=== PATIENT | male | born 1965 | race Caucasian/White ===

== ENCOUNTER 2019-07-06 08:20 | Observation (INO) | payer OTHER ==
--- NOTE | 2019-07-04 13:00 | NUR ---
Checked patient temperature: 98.6F via skin probe. Patient denies being out of the country in the last 14 days. Patient denies being around anyone who has been out the country in the last 14 days. Patient denies being around anyone who was exposed or diagnosed with garcia virus. Patient denies fever, cough, or shortness of breath in the last 14 days.
[2019-07-04 13:40] LABS: BASOPHILS % 0.2 % (0.0-1.0); EOSINOPHILS # (AUTO) 0.1 (0.0-0.4); EOSINOPHILS % 1.6 % (0.0-6.0); HEMATOCRIT 50.1 % (38.2-49.6); HEMOGLOBIN 17.3 g/dL (14.0-18.0); LYMPHOCYTES # (AUTO) 1.4 (1.0-3.2); LYMPHOCYTES % 17.7 % (18.0-39.1); MEAN CORPUSCULAR HEMOGLOBIN 28.9 pg (28-32); MEAN CORPUSCULAR HGB CONC 34.5 g/dL (31-35); MEAN CORPUSCULAR VOLUME 83.6 fL (81-99); MONOCYTES # (AUTO) 0.7 (0.2-0.8); MONOCYTES % 8.5 % (4.4-11.3); NEUTROPHILS # (AUTO) 5.8 (2.1-6.9); NEUTROPHILS % 71.8 % (38.7-80.0); PLATELET COUNT 263 x10e3/uL (140-360); RED BLOOD COUNT 5.99 x10e6/uL (4.3-5.7); RED CELL DISTRIBUTION WIDTH 12.5 % (11.7-14.4)
[2019-07-04 13:54] LABS: INR 0.96; PROTHROMBIN TIME 13.3 seconds (11.9-14.5)
[2019-07-04 14:04] LABS: ALBUMIN 3.8 g/dL (3.5-5.0); ALBUMIN/GLOBULIN RATIO 1.2 (0.8-2.0); ANION GAP 12.1 mmol/L (8-16); CALCIUM 9.9 mg/dL (8.4-10.2); CREATININE, SERUM 1.79 mg/dL (0.72-1.25); POTASSIUM 4.1 mmol/L (3.5-5.1)
--- NOTE | 2019-07-04 14:41 | NUR ---
Dr Bonilla contacted ([phone]) and reported abnormal values of CMP. Message relayed to patient to see PCP
[~2019-07-06] VITALS: Ht 180.3 cm; Wt 83.0 kg
[2019-07-06] VITALS (13 sets, daily range): BP systolic 117–148; BP diastolic 80–94
[~2019-07-06 08:20] MED LIST: AMLODIPINE BESY10 MG PO; ASPIRIN325 MG PO; ATORVASTATIN CA20 MG PO; DIOVAN160 MG PO; HYDROCHLOROTHIA25 MG PO; SYNJARDY 12.5-1 EACH PO
[2019-07-06] MEDS ORDERED: FENTANYL CITRATE/PF 100MCG/2 ML INJ ONE (10:46)
[2019-07-06] MEDS ORDERED: MIDAZOLAM HCL 2 MG/2 ML VIAL ONE (10:46)
[2019-07-06] MEDS ORDERED: LIDOCAINE HCL 2% LOCAL 20 ML VIAL ONE (10:46)
[2019-07-06] MEDS ORDERED: VERAPAMIL HCL 2.5 MG/ML 2 ML VIAL ONE (10:46)
[2019-07-06] MEDS ORDERED: SODIUM CHLORIDE 0.9% 1000ML 1,000 ML ONE (10:47)
[2019-07-06] MEDS ORDERED: IOPAMIDOL 370 MG/ML 200 ML INFUS..BTL INJ ONE ×2 (10:47→11:55)
[2019-07-06] MEDS ORDERED: HEPARIN SOD/SOD CHLORIDE 2,000 ML ONE (10:47)
[2019-07-06] MEDS ORDERED: ADENOSINE 6MG/2ML 0 ML ONE (12:01)
[2019-07-06] MEDS ORDERED: ASPIRIN 325 MG TAB ONE (12:17)
[2019-07-06] MEDS ORDERED: TICAGRELOR 90 MG TABLET ONE (12:17)
--- NOTE | 2019-07-06 15:36 | NUR ---
Received patient from labor supervisor. AAOx3, CDI dressing to right wrist with wrist protector. Oriented to room and resting in bed. Bed locked and in low position, possessions and call light within reach.
--- NOTE | 2019-07-06 18:30 | NUR ---
Patient states, "I do not have home Synjardy, and do not want pharmacy to replace medication". Paged Dr. Bonilla to notify of [id number]. Awaiting call back.
--- NOTE | 2019-07-06 19:11 | NUR ---
Report given to oncoming nurse, aware and awaiting call back from . Resting in bed AAOx4. Denies chest pain. Call light within reach, bed locked and in low position, SR up x 2.
--- NOTE | 2019-07-06 19:11 | Operative Report ---
DATE OF PROCEDURE: SURGEON: Gus Bonilla DO PROCEDURES PERFORMED: 1. Conscious sedation, 45 minutes. 2. Selective coronary angiography x2. 3. Left heart catheterization. 4. Percutaneous coronary intervention of the mid left anterior descending coronary artery. 5. Percutaneous coronary intervention of the second obtuse marginal vessel. PREPROCEDURE DIAGNOSIS: Abnormal stress test. POSTPROCEDURE DIAGNOSIS: Abnormal stress test. ESTIMATED BLOOD LOSS: Less than 20 mL. SPECIMENS REMOVED: None. PROCEDURE IN DETAIL: After informed consent was obtained, the patient was brought to the cardiac catheterization laboratory in a fasting and nonsedated state. Conscious sedation was provided by myself and monitored by the paving and surfacing labourer nurse. Lidocaine 2% was infiltrated over the right wrist for local anesthesia. Using micropuncture needle, the right radial artery was accessed via the modified Seldinger technique and a 6-Montserratian Slender sheath was placed. Next, diagnostic coronary angiography and left heart catheterization were performed using a TIG4 catheter. This showed significant stenotic lesions in the mid LAD and second obtuse marginal vessel. Decision was made to perform percutaneous coronary intervention. The patient received systemic heparin. Next, the left main was cannulated with a 6-Montserratian XB LAD 3.0 guide catheter. The lesion was crossed with a Runthrough wire and pre-dilated with a 2.5 x 12 balloon. The mid LAD lesion was stented with a 2.5 x 20 Synergy drug-eluting stent. Next, the wire was redirected into the second obtuse marginal vessel. This was also pre-dilated with a 2.5 x 12 balloon. This was also stented with a 2.5 x 20 Synergy drug-eluting stent. Final angiography confirmed excellent interventional results without vessel perforation, edge dissection, or distal embolization at the end of the case. The patient tolerated the procedure well with no immediate complications. He was transferred back to his room in stable condition. Hemostasis was achieved via TR band. PROCEDURAL FINDINGS: 1. Left main coronary artery is patent without significant disease. 2. Left anterior descending coronary artery tapers down to a small to medium caliber vessel after the takeoff the first diagonal branch. There is a 90% stenosis in the mid portion. The distal LAD has a 50% stenosis. 3. Left circumflex coronary provides two obtuse marginal vessels. The second of which has a 70% stenosis. 4. Right coronary artery is a large dominant vessel, provides a large posterolateral branch and the posterior descending coronary artery. The PDA itself has a 60% to 70% nonflow-limiting stenosis. 5. The left ventricular end-diastolic pressure is 19 mmHg with no aortic valve gradient present upon pullback. INTERVENTIONAL RESULTS: 1. Successful percutaneous coronary intervention of the left anterior descending coronary artery. Pre-PCI LINDA flow was 2. Post PCI LINDA flow was 3. Postprocedure stenosis less than 10%. 2. Successful percutaneous coronary intervention of the left circumflex coronary artery. Pre-PCI LINDA flow was 2. Post PCI LINDA flow was 3. Postprocedure stenosis less than 10%. IMPRESSION: Abnormal stress test with multivessel coronary artery disease, status post intervention of the left anterior descending and left circumflex coronary artery. RECOMMENDATIONS: The patient will be placed on multiple medical therapy and dual antiplatelet therapy. DO ZOHAIB Carcamo/ROJASL /[id number]
[2019-07-06] MEDS ORDERED: ATORVASTATIN 40 MG TAB PO SCH (21:00)
[2019-07-07] VITALS: BP 132/76
[2019-07-07 04:00] VITALS: BP 123/79
[2019-07-07 06:41] LABS: HEMATOCRIT 46.4 % (38.2-49.6); HEMOGLOBIN 15.5 g/dL (14.0-18.0)
[2019-07-07 07:09] LABS: ANION GAP 12.2 mmol/L (8-16); CALCIUM 8.9 mg/dL (8.4-10.2); CREATININE, SERUM 1.6 mg/dL (0.72-1.25); POTASSIUM 3.2 mmol/L (3.5-5.1)
[2019-07-07 08:10] VITALS: BP 126/83
[2019-07-07] MEDS ORDERED: AMLODIPINE BESYLATE 10 MG TAB PO SCH (09:00)
[2019-07-07] MEDS ORDERED: [UNRECOGNIZED DRUG - OTHER] PO SCH (09:00)
[2019-07-07] MEDS ORDERED: METFORMIN HCL PO SCH (09:00)
[2019-07-07] MEDS ORDERED: EMPAGLIFLOZIN PO SCH (09:00)
[2019-07-07] MEDS ORDERED: HYDROCHLOROTHIAZIDE 25 MG TAB PO SCH (09:00)
[2019-07-07] MEDS ORDERED: ASPIRIN 325 MG TAB PO SCH (09:00)
[2019-07-07] MEDS ORDERED: VALSARTAN 160 MG TAB PO SCH (09:00)
[2019-07-07 09:19] VITALS: BP 126/83
--- NOTE | 2019-07-07 10:25 | NUR ---
Introductory visit. Pt lying on sofa and anxious for discharge. Pt states, "I'll self-discharge if if I have to." C.O.D. Audit Clerk provided calming pastoral presence, hospitality, and supportive listening. KEVIN HUMPHRIES C.O.D. Audit Clerk Spiritual Care Department O: [phone]
--- NOTE | 2019-07-07 11:04 | NUR ---
DISCHARGE INSTRUCTIONS REVIEWED WITH PT, VERBALIZED UNDERSTANDING, AWAITING RIDE
== END 2019-07-07 11:10 | disposition home or self-care (01) ==
LOC: CATH LAB 08:20 → MED/SURG 13:13 → CATH LAB 15:36
PROVIDERS: ADMIT Internal Medicine Cardiovascular Disease; ATTEND Internal Medicine Cardiovascular Disease
DX: I25.110 Atherosclerotic heart disease of native coronary artery with unstable angina pectoris (principal); I73.9 Peripheral vascular disease, unspecified; I10 Essential (primary) hypertension; E78.5 Hyperlipidemia, unspecified; R94.39 Abnormal result of other cardiovascular function study; Z01.812 Encounter for preprocedural laboratory examination
CPT/HCPCS: 36415 ×3; 80048; 80053; 82948 ×2; 85014; 85018; 85025; 85610; 92928; 92929; 93458; C1725; C1769; C1874; C1887; G0378 ×2; J2001; J2250; J3010; J7030; Q9967; 99152; 99153; J0153

== ENCOUNTER → 2020-07-16 | Outpatient (CLI) | payer BC ==
[~2020-07-16] MED LIST changes: +GADOBENATE DIMEGLUMINE 1 ML IV ONE
[2020-07-16 13:54] LABS: CREATININE, SERUM 1.69 mg/dL (0.72-1.25)
== END ==
LOC: MRI 13:08
PROVIDERS: ATTEND Psychiatry & Neurology Neurology
DX: R20.8 Other disturbances of skin sensation (principal); G95.9 Disease of spinal cord, unspecified
CPT/HCPCS: 36415; 72156; 72157; 82565; 84520; A9577

== ENCOUNTER → 2020-11-14 | Day surgery (SDC) | payer BC ==
[2020-11-13 11:43] LABS: BASOPHILS % 0.4 % (0.0-1.0); EOSINOPHILS # (AUTO) 0.2 (0.0-0.4); EOSINOPHILS % 2.5 % (0.0-6.0); HEMATOCRIT 46.2 % (38.2-49.6); LYMPHOCYTES % 14.2 % (18.0-39.1); MEAN CORPUSCULAR HGB CONC 32.5 g/dL (31-35); MEAN CORPUSCULAR VOLUME 83.2 fL (81-99); MONOCYTES # (AUTO) 0.9 (0.2-0.8); MONOCYTES % 12.3 % (4.4-11.3); NEUTROPHILS # (AUTO) 5.2 (2.1-6.9); NEUTROPHILS % 70.3 % (38.7-80.0); PLATELET COUNT 244 x10e3/uL (140-360); RED BLOOD COUNT 5.55 x10e6/uL (4.3-5.7); RED CELL DISTRIBUTION WIDTH 14.3 % (11.7-14.4)
[2020-11-13 11:57] LABS: INR 0.9; PROTHROMBIN TIME 12.3 seconds (11.9-14.5)
[2020-11-13 12:04] LABS: ALBUMIN 3.6 g/dL (3.5-5.0); ALBUMIN/GLOBULIN RATIO 0.8 (0.8-2.0); ANION GAP 13.8 mmol/L (8-16); CREATININE, SERUM 2.12 mg/dL (0.72-1.25); POTASSIUM 3.8 mmol/L (3.5-5.1)
[2020-11-14] VITALS (11 sets, daily range): BP systolic 134–168; BP diastolic 77–108
[~2020-11-14] VITALS: Ht 180.3 cm; Wt 97.1 kg
[~2020-11-14] MED LIST changes: +ASPIRIN 325 MG TAB ONE; +BASAGLAR K100 UNIT/1 SQ; +FENTANYL CITRATE/PF 100MCG/2 ML INJ ONE; -GADOBENATE DIMEGLUMINE 1 ML IV ONE; +HEPARIN SOD (PORCINE) 1000 UNIT/ML 30ML ONE; +HEPARIN SOD/SOD CHLORIDE 2,000 ML ONE; +IOPAMIDOL 370 MG/ML 200 ML INFUS..BTL INJ ONE; +LIDOCAINE HCL 2% LOCAL 20 ML VIAL ONE; +MIDAZOLAM HCL 2 MG/2 ML VIAL ONE; +NITROGLYCERIN/D5W 200 MCG/ML 250 ML ONE; +SODIUM CHLORIDE 0.9% 1000ML 1,000 ML ONE; +TICAGRELOR 90 MG TABLET ONE; +VERAPAMIL HCL 2.5 MG/ML 2 ML VIAL ONE
== END | disposition home or self-care (01) ==
LOC: CATH LAB 08:15
PROVIDERS: ATTEND Internal Medicine Cardiovascular Disease
DX: I25.10 Atherosclerotic heart disease of native coronary artery without angina pectoris (principal); Z01.812 Encounter for preprocedural laboratory examination; Z20.822 Contact with and (suspected) exposure to COVID-19
CPT/HCPCS: 36415 ×2; 80053; 82948; 85025; 85610; 92928; 92929; 93458; C1725 ×2; C1769; C1874; C1887; J1644; J2001; J2250; J3010; J7030; Q9967; U0002; 99152; 99153